=== PATIENT | male | born 1990 | race Caucasian/White ===

== ENCOUNTER → 2017-05-09 | Outpatient (CLI) | payer OTHER ==
[2017-05-12 15:07] LABS: HCV Qualitative Result DETECTED (Not detected)
== END | disposition home or self-care (01) ==
LOC: LABWHC1 17:10
DX: B18.2 Chronic viral hepatitis C (principal)
CPT/HCPCS: 36415; 87522; 87902

== ENCOUNTER → 2017-09-22 | Outpatient (CLI) | payer OTHER ==
[2017-09-22 14:32] LABS: Basophils # (A) 0.1 k/uL (0-0.2); Basophils % (A) 1 %; Eosinophils # (A) 0.4 k/uL (0-0.7); Eosinophils % (A) 6 %; HCT 45.8 % (39.0-53.0); HGB 14.3 gm/dL (13.0-17.5); Lymphocytes # (A) 2.6 k/uL (1.0-4.8); Lymphocytes % (A) 38 %; MCH 29.4 pg (25.0-35.0); MCHC 31.3 g/dL (31.0-37.0); Mean Platelet Volume 7.4; Monocytes # (A) 0.6 k/uL (0-1.0); Monocytes % (A) 8 %; Neutrophils # (A) 3.1 k/uL (1.3-7.7); Neutrophils % (A) 45 %; Platelet Count 228 k/uL (150-450); RBC 4.87 m/uL (4.30-5.90); RDW 13.3 % (11.5-15.5); WBC 6.8 k/uL (3.8-10.6)
[2017-09-22 14:42] LABS: ALT 71 U/L (21-72); AST 39 U/L (17-59); Albumin 4.5 g/dL (3.5-5.0); Alkaline Phosphatase 67 U/L (38-126); Anion Gap 10 mmol/L; Bilirubin, Delta 0.2 mg/dL (0.0-0.2); Bilirubin,Unconjugated 0.4 mg/dL (0.0-1.1); Blood Urea Nitrogen 15 mg/dL (9-20); Calcium 9.7 mg/dL (8.4-10.2); Carbon Dioxide 29 mmol/L (22-30); Chloride 104 mmol/L (98-107); Glucose 92 mg/dL (74-99); Potassium 5.1 mmol/L (3.5-5.1); Sodium 143 mmol/L (137-145); Total Bilirubin 0.6 mg/dL (0.2-1.3); Total Protein 7.6 g/dL (6.3-8.2)
[2017-09-25 15:51] LABS: Hepatits C Virus RNA DETECTED (Not detected); LOG HCV IU/mL 3.69 (<1.08)
== END | disposition home or self-care (01) ==
LOC: LABWHC1 14:01
DX: B18.2 Chronic viral hepatitis C (principal)
CPT/HCPCS: 36415; 80053; 82248; 85025; 87522

== ENCOUNTER 2017-09-26 15:27 | Emergency (ER) | payer OTHER ==
[2017-09-26 15:35] VITALS: BP 131/76; PULSE 71; RESP 20; TEMP 98.3
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
== END 2017-09-26 16:14 | disposition home or self-care (01) ==
LOC: EC 15:27
DX: G89.29 Other chronic pain (principal); M54.5 Low back pain; R10.13 Epigastric pain; F17.200 Nicotine dependence, unspecified, uncomplicated
CPT/HCPCS: 99283

== ENCOUNTER 2017-09-28 15:13 | Inpatient (IN) | payer OTHER ==
[2017-09-28] MEDS ORDERED: SODIUM CHLORIDE 0.9% 500 ML IV STA (15:53)
[2017-09-28] MEDS ORDERED: KETOROLAC 30 MG/ML 1 ML VIAL IVP STA (15:53)
[2017-09-28] MEDS ORDERED: ONDANSETRON 4 MG/2 ML VIAL IVP STA (15:53)
[2017-09-28 16:35] LABS: Basophils % (A) 0 %; Eosinophils # (A) 0.1 k/uL (0-0.7); Eosinophils % (A) 1 %; HCT 46.8 % (39.0-53.0); HGB 15.7 gm/dL (13.0-17.5); Lymphocytes # (A) 0.9 k/uL (1.0-4.8); Lymphocytes % (A) 7 %; MCH 29.7 pg (25.0-35.0); MCHC 33.5 g/dL (31.0-37.0); Mean Platelet Volume 8.3; Monocytes # (A) 1.3 k/uL (0-1.0); Monocytes % (A) 10 %; Neutrophils # (A) 10.4 k/uL (1.3-7.7); Neutrophils % (A) 81 %; Platelet Count 187 k/uL (150-450); RBC 5.28 m/uL (4.30-5.90); RDW 13.3 % (11.5-15.5); WBC 12.9 k/uL (3.8-10.6)
[2017-09-28 16:36] LABS: MCV 88.6 fL (80.0-100.0)
[2017-09-28 16:43] LABS: ALT 467 U/L (21-72); AST 510 U/L (17-59); Albumin 4.6 g/dL (3.5-5.0); Alkaline Phosphatase 148 U/L (38-126); Amylase 55 U/L (30-110); Anion Gap 12 mmol/L; Blood Urea Nitrogen 13 mg/dL (9-20); Calcium 9.8 mg/dL (8.4-10.2); Carbon Dioxide 23 mmol/L (22-30); Chloride 107 mmol/L (98-107); Glucose 102 mg/dL (74-99); Lipase 68 U/L (23-300); Potassium 4.6 mmol/L (3.5-5.1); Sodium 142 mmol/L (137-145); Total Bilirubin 3.2 mg/dL (0.2-1.3); Total Protein 8.1 g/dL (6.3-8.2)
--- NOTE | 2017-09-28 17:12 | US ---
EXAMINATION TYPE: US gallbladder DATE OF EXAM: 09/28/2017 COMPARISON: NONE CLINICAL HISTORY: Pain. EXAM MEASUREMENTS: Liver Length: 18.4 cm Gallbladder Wall: 0.2 cm CBD: 0.6 cm CHD: 0.6 cm Right Kidney: 11.8 x 5.0 x 3.6 cm Pancreas: Tail obscured by overlying bowel gas. Appears slightly echogenic. Liver: Appears slightly enlarged in size. No focal masses identified. Gallbladder: Multiple mobile echogenic foci with shadowing seen. Unable to see neck due to echogeni c foci. Evidence for sonographic Madden's sign: neg CBD: wnl CHD: wnl Right Kidney: wnl IMPRESSION: Numerous large gallstones. No dilated ducts. No focal liver defect.
[2017-09-28 17:20] LABS: Amorphous Sediment,Urine Few /hpf; Appearance,Urine Turbid (Clear); Bacteria,Urine Moderate /hpf; Bilirubin,Urine 2+ (Negative); Blood,Urine Negative (Negative); Color,Urine Orange; Glucose,Urine (UA) Negative (Negative); Ketones,Urine Negative (Negative); Leukocyte Esterase,Urine Negative (Negative); Mucus,Urine Moderate /hpf; Protein,Urine 1+ (Negative); RBC,Urine 12 /hpf (0-5); Specific Gravity,Urine 1.023 (1.001-1.035); WBC,Urine 40 /hpf (0-5)
[2017-09-28] MEDS ORDERED: cefTRIAXone IN SWFI 1,000 MG/10 ML SYRINGE IVP STA (18:06)
[2017-09-28] MEDS ORDERED: AZITHROMYCIN 500 MG TAB PO STA (18:09)
[2017-09-28] MEDS ORDERED: SODIUM CHLORIDE 0.9% 1,000 ML IV ONE (18:19)
--- NOTE | 2017-09-28 18:19 | ED ---
General Adult HPI - General Chief complaint: Abdominal Pain Stated complaint: Side pain Time Seen by Provider: 09/28/17 15:15 Source: patient, RN notes reviewed Mode of arrival: ambulatory Limitations: no limitations - History of Present Illness Initial comments: This is a 26-year-old male who presents emergency Department complaining of right upper quadrant abdominal pain. Patient states he is a former heroin addict and he also has hepatitis C. Patient states the pain has been increasing over the last 3 days she's been to the ER twice before and once was doctor's office. Patient states she's been slightly nauseous has vomited once last evening. Patient denies any diarrhea. Patient denies any pain in the lower abdomen. Patient denies any dysuria hematuria urinary freaky. Patient denies any recent fever chills or cough. Patient denies any chest pain or palpitations patient denies any difficulty breathing shortness of breath. - Related Data Home Medications Medication Instructions Recorded Confirmed No Known Home Medications [No 09/28/17 09/28/17 Known Home Medications] Allergies Allergy/AdvReac Type Severity Reaction Status Date / Time No Known Allergies Allergy Verified 09/28/17 15:58 Review of Systems ROS Statement: Those systems with pertinent positive or pertinent negative responses have been documented in the HPI. ROS Other: All systems not noted in ROS Statement are negative. Past Medical History Past Medical History: No Reported History History of Any Multi-Drug Resistant Organisms: None Reported Past Surgical History: No Surgical Hx Reported Past Psychological History: No Psychological Hx Reported Smoking Status: Current every day smoker Past Alcohol Use History: None Reported Past Drug Use History: None Reported General Exam - General Exam Comments Initial Comments: GENERAL: Patient is well-developed and well-nourished. Patient is nontoxic and well- hydrated and is in no acute distress. ENT: Neck is soft and supple. No significant lymphadenopathy is noted. Oropharynx is clear. Moist mucous membranes. Neck has full range of motion without eliciting any pain. EYES: The sclera were anicteric and conjunctiva were pink and moist. Extraocular movements were intact and pupils were equal round and reactive to light. Eyelids were unremarkable. PULMONARY: Unlabored respirations. Good breath sounds bilaterally. No audible rales rhonchi or wheezing was noted. CARDIOVASCULAR: There is a regular rate and rhythm without any murmurs gallops or rubs. ABDOMEN: Patient has right upper quadrant tenderness. SKIN: Skin is clear with no lesions or rashes and otherwise unremarkable. NEUROLOGIC: Patient is alert and oriented x3. Cranial nerves II through XII are grossly intact. Motor and sensory are also intact. Normal speech, volume and content. Symmetrical smile. MUSCULOSKELETAL: Normal extremities with adequate strength and full range of motion. LYMPHATICS: No significant lymphadenopathy is noted PSYCHIATRIC: Normal psychiatric evaluation. Limitations: no limitations Course Vital Signs 09/28/17 15:32 Temperature 98 F Pulse Rate 98 Respiratory 20 Rate Blood Pressure 171/97 O2 Sat by Pulse 98 Oximetry Medical Decision Making - Medical Decision Making Patient also had a urinary tract infectious I treated him for STDs. I spoke with Dr. Stevens he agreed to admit the patient I consult to Dr. Wisdom. - Lab Data Result diagrams: 09/28/17 16:10 09/28/17 16:10 Lab Results 09/28/17 09/28/17 09/28/17 Range/Units 16:10 16:10 16:50 WBC 12.9 H (3.8-10.6) k/uL RBC 5.28 (4.30-5.90) m/uL Hgb 15.7 (13.0-17.5) gm/dL Hct 46.8 (39.0-53.0) % MCV 88.6 D (80.0-100.0) fL MCH 29.7 (25.0-35.0) pg MCHC 33.5 (31.0-37.0) g/dL RDW 13.3 (11.5-15.5) % Plt Count 187 (150-450) k/uL Neutrophils % 81 % Lymphocytes % 7 % Monocytes % 10 % Eosinophils % 1 % Basophils % 0 % Neutrophils # 10.4 H (1.3-7.7) k/uL Lymphocytes # 0.9 L (1.0-4.8) k/uL Monocytes # 1.3 H (0-1.0) k/uL Eosinophils # 0.1 (0-0.7) k/uL Basophils # 0.0 (0-0.2) k/uL Sodium 142 (137-145) mmol/L Potassium 4.6 (3.5-5.1) mmol/L Chloride 107 (98-107) mmol/L Carbon Dioxide 23 (22-30) mmol/L Anion Gap 12 mmol/L BUN 13 (9-20) mg/dL Creatinine 0.70 (0.66-1.25) mg/dL Est GFR (MDRD) Af Amer >60 (>60 ml/min/1.73 sqM) Est GFR (MDRD) Non-Af >60 (>60 ml/min/1.73 sqM) Glucose 102 H (74-99) mg/dL Calcium 9.8 (8.4-10.2) mg/dL Total Bilirubin 3.2 H (0.2-1.3) mg/dL AST 510 H (17-59) U/L ALT 467 H (21-72) U/L Alkaline Phosphatase 148 H (38-126) U/L Total Protein 8.1 (6.3-8.2) g/dL Albumin 4.6 (3.5-5.0) g/dL Amylase 55 (30-110) U/L Lipase 68 (23-300) U/L Urine Color [place] Urine Appearance Turbid (Clear) Urine pH 7.0 (5.0-8.0) Ur Specific [place] 1.023 (1.001-1.035) Urine Protein 1+ H (Negative) Urine Glucose (UA) Negative (Negative) Urine Ketones Negative (Negative) Urine Blood Negative (Negative) Urine Nitrite Negative (Negative) Urine Bilirubin 2+ H (Negative) Urine Urobilinogen 4.0 (<2.0) mg/dL Ur Leukocyte Esterase Negative (Negative) Urine RBC 12 H (0-5) /hpf Urine WBC 40 H (0-5) /hpf Urine WBC Clumps Many H (None) /hpf Amorphous Sediment Few H (None) /hpf Urine Bacteria Moderate H (None) /hpf Urine Mucus Moderate H (None) /hpf Disposition Clinical Impression: Right upper quadrant abdominal pain, Cholelithiasis, Urinary tract infection, Concern about STD in male without diagnosis Disposition: ADMITTED IP TO THIS HOSP Referrals: Colton Stevens MD [Primary Care Provider] - 1-2 days Time of Disposition: 18:18
[2017-09-28] MEDS ORDERED: ONDANSETRON 4 MG/2 ML VIAL IVP PRN (20:43)
[2017-09-28] MEDS: NICOTINE 14MG/24HR PATCH TRANSDERM SCH (21:46)
[2017-09-28] MEDS: KETOROLAC 30 MG/ML 1 ML VIAL IVP PRN (21:46)
[2017-09-29] MEDS: KETOROLAC 30 MG/ML 1 ML VIAL IVP PRN (07:38)
[2017-09-29] MEDS: NICOTINE 14MG/24HR PATCH TRANSDERM SCH (07:38)
[2017-09-29 08:57] LABS: Basophils % (A) 0 %; Eosinophils # (A) 0.3 k/uL (0-0.7); Eosinophils % (A) 6 %; HGB 13.6 gm/dL (13.0-17.5); Lymphocytes # (A) 1.7 k/uL (1.0-4.8); Lymphocytes % (A) 36 %; MCH 29.4 pg (25.0-35.0); MCHC 32.3 g/dL (31.0-37.0); Mean Platelet Volume 8.2; Monocytes # (A) 0.5 k/uL (0-1.0); Monocytes % (A) 11 %; Neutrophils # (A) 2.1 k/uL (1.3-7.7); Neutrophils % (A) 44 %; Platelet Count 171 k/uL (150-450); RBC 4.62 m/uL (4.30-5.90); RDW 13.5 % (11.5-15.5); WBC 4.9 k/uL (3.8-10.6)
[2017-09-29 09:07] LABS: ALT 440 U/L (21-72); AST 319 U/L (17-59); Albumin 3.5 g/dL (3.5-5.0); Alkaline Phosphatase 154 U/L (38-126); Anion Gap 7 mmol/L; Blood Urea Nitrogen 11 mg/dL (9-20); Carbon Dioxide 25 mmol/L (22-30); Chloride 108 mmol/L (98-107); Glucose 97 mg/dL (74-99); Potassium 4.5 mmol/L (3.5-5.1); Sodium 140 mmol/L (137-145); Total Bilirubin 3.9 mg/dL (0.2-1.3); Total Protein 6.3 g/dL (6.3-8.2)
--- NOTE | 2017-09-29 10:26 | P.CONS ---
History of Present Illness - Reason for Consult Consult date: 09/29/17 Elevated liver enzymes Requesting physician: Gilberto De La Paz - History of Present Illness 26-year-old male with a history of intravenous heroin abuse, chronic hepatitis C , and nicotine cigarette dependency presents with acute epigastric pain elevated liver enzymes new-onset of jaundice. Pain has been present for about 3 days with dark colored urine no changes in bowel movement color. Denies fever chills hematemesis hematochezia melena. He was evaluated in the emergency room a few days ago with lower back pain. Liver function tests were normal and 09/22/2017. Admission total bilirubin 3.2. AST 510. ALT 467. Alkaline phosphatase 148. Lipase 68. This morning total bilirubin is 3.9. AST 319. ALT 440. Alkaline phosphatase 154. Still expressing pain in the midepigastrium. White count 12.9 presently 4.9. Hemoglobin 13.6. Platelet 171. He has been clean from intravenous drug abuse for about 19 months. Outpatient HCV treatment in progress has not started treatment. Ultrasound abdomen CBD 0.6 cm. Multiple gallstones. No dilated ducts. No focal liver defect. Review of Systems Constitutional: Denies fever, chills, sweats, weight gain, or loss. HEENT: Negative for migraines, blurred vision or loss, earaches, drainage, tinnitus, oral mucosal lesions, dysphagia, or odynophagia. Cardiac: Negative for chest pain, arrhythmias, or palpitation. Respiratory: Nicotine cigarette dependency. Negative for shortness of breath, hemoptysis, cough, or sputum production. Gastrointestinal: See HPI for pertinent findings. Genitourinary: Negative for hematuria, urgency, frequency, polyuria, dysuria, or penile discharge. Musculoskeletal: Negative for muscle aches, swelling, arthritis, and arthralgias. Neurologic: Negative for stroke or TIA. Endocrine: Negative for thyroid problems. Skin: Negative for rash or itching. Psychiatric: Negative history for depression and anxiety Past Medical History Past Medical History: No Reported History History of Any Multi-Drug Resistant Organisms: None Reported Past Surgical History: No Surgical Hx Reported Past Psychological History: No Psychological Hx Reported Smoking Status: Current every day smoker Past Alcohol Use History: None Reported Past Drug Use History: None Reported Medications and Allergies Home Medications Medication Instructions Recorded Confirmed Type No Known Home Medications [No 09/28/17 09/28/17 History Known Home Medications] Allergies Allergy/AdvReac Type Severity Reaction Status Date / Time No Known Allergies Allergy Verified 09/28/17 15:58 Physical Exam Vitals: Vital Signs Temp Pulse Pulse Resp BP BP Pulse Ox 09/29/17 07:00 97.0 F L 57 L 18 106/50 97 09/28/17 23:55 97.7 F 67 18 113/45 96 09/28/17 22:25 18 09/28/17 20:15 97.1 F L 57 L 18 130/49 96 09/28/17 18:15 98.7 F 67 18 125/65 09/28/17 15:32 98 F 98 20 171/97 98 Intake and Output 09/28/17 09/29/17 09/29/17 22:59 06:59 14:59 Intake Total 400 0 Balance 400 0 Intake: Oral 400 0 Other: Voiding Method Toilet # Voids 1 Weight 99.79 kg General appearance: The patient is alert, oriented, in no acute distress. Slightly jaundiced in appearance. HET: Head is normocephalic and atraumatic. Pupils are equal and reactive. Sclerae icterus. Oropharynx is clear without lesions. Neck: Supple without lymphadenopathy. Trachea midline. Heart: S1 S2. Regular rate and rhythm. Lungs: No crackles or wheezes are heard. Abdomen: Soft, midepigastric tenderness, nondistended with bowel sounds. No peritoneal signs. No palpable organomegaly or masses. Extremities: Normal skin color and turgor. No cyanosis, rash, ulceration, clubbing, or edema. Radial and pedal pulses are 2/4 bilaterally. Neurological: No focal deficits. Strength and sensation are grossly intact. Results CBC & Chem 7: 09/29/17 07:56 09/29/17 07:56 Labs: Abnormal Lab Results - Last 24 Hours (Table) 09/28/17 09/28/17 09/28/17 Range/Units 16:10 16:10 16:50 WBC 12.9 H (3.8-10.6) k/uL Neutrophils # 10.4 H (1.3-7.7) k/uL Lymphocytes # 0.9 L (1.0-4.8) k/uL Monocytes # 1.3 H (0-1.0) k/uL Chloride (98-107) mmol/L Glucose 102 H (74-99) mg/dL Total Bilirubin 3.2 H (0.2-1.3) mg/dL AST 510 H (17-59) U/L ALT 467 H (21-72) U/L Alkaline Phosphatase 148 H (38-126) U/L Urine Protein 1+ H (Negative) Urine Bilirubin 2+ H (Negative) Urine RBC 12 H (0-5) /hpf Urine WBC 40 H (0-5) /hpf Urine WBC Clumps Many H (None) /hpf Amorphous Sediment Few H (None) /hpf Urine Bacteria Moderate H (None) /hpf Urine Mucus Moderate H (None) /hpf 09/29/17 Range/Units 07:56 WBC (3.8-10.6) k/uL Neutrophils # (1.3-7.7) k/uL Lymphocytes # (1.0-4.8) k/uL Monocytes # (0-1.0) k/uL Chloride 108 H (98-107) mmol/L Glucose (74-99) mg/dL Total Bilirubin 3.9 H (0.2-1.3) mg/dL AST 319 H (17-59) U/L ALT 440 H (21-72) U/L Alkaline Phosphatase 154 H (38-126) U/L Urine Protein (Negative) Urine Bilirubin (Negative) Urine RBC (0-5) /hpf Urine WBC (0-5) /hpf Urine WBC Clumps (None) /hpf Amorphous Sediment (None) /hpf Urine Bacteria (None) /hpf Urine Mucus (None) /hpf Microbiology - Last 24 Hours (Table) 09/28/17 16:50 Urine Culture - Preliminary Urine,Clean Catch US - abdomen: report reviewed (Dr. Stanton) Assessment and Plan (1) Obstructive jaundice Narrative/Plan: 26 year old male admitted with acute epigastric abdominal pain with new onset of elevated liver enzymes cholelithiasis suspect choledocholithiasis. Current Visit: Yes Status: Acute Code(s): K83.8 - OTHER SPECIFIED DISEASES OF BILIARY TRACT SNOMED Code(s): 62337717 (2) Cholelithiasis Current Visit: Yes Status: Acute Code(s): K80.20 - CALCULUS OF GALLBLADDER W /O CHOLECYSTITIS W/O OBSTRUCTION SNOMED Code(s): 641997676 (3) Chronic hepatitis C virus infection Current Visit: Yes Status: Chronic Code(s): B18.2 - CHRONIC VIRAL HEPATITIS C SNOMED Code(s): 234490856 Plan: 1. ERCP. 2. Nothing by mouth except medications. Case was discussed with general surgeon Dr. De La Paz. The packer dried beef has discussed the risks, benefits and alternative therapies for the above-mentioned procedure and for both sedation/analgesia as well as necessary blood product administration, if indicated, as they pertain to this patient. The patient has indicated understanding and acceptance of the risks and procedures discussed. Thank you for this kind referral and the opportunity to participate in the care of your patient. This consultation was discussed with Dr. Stanton. The impression and plan of care have been directed as dictated.
[2017-09-29 12:00] LABS: Hepatitis A Antibody IgM Non-Reactive (Non-Reactive); Hepatitis B Core IgM Non-Reactive (Non-Reactive)
[2017-09-29 12:13] LABS: INR 1.2 (<1.2); Prothrombin Time 11.2 sec (9.0-12.0)
[2017-09-29] MEDS ORDERED: MORPHINE SULFATE 4 MG/ML SYRINGE IVP PRN (12:24)
--- NOTE | 2017-09-29 12:36 | P.GSCN ---
<Noemi Franco - Last Filed: 09/29/17 12:24> History of Present Illness Consult date: 09/29/17 Reason for Consult: Abdominal pain History of present illness: 6-year-old male presented on the day of admission to the emergency room with a chief complaint of developing right upper quadrant abdominal pain with a nausea sensation. Patient stated the symptoms started 3 days prior. With new onset jaundice. 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 Recently diagnosed with hepatitis C has not initiated treatment yet . Patient stated that the pain in his right upper quadrant continued over the last several days had been to the emergency room twice to be evaluated and once in his doctor's office. Patient states there's been no change in bowel habits. There's been no fever chills. In the emergency room and ultrasound of the gallbladder was obtained and showed numerous large gallstones. No dilated ducts. No focal liver defect. Additionally patient's white count was elevated and AST and ALT were elevated as well total bili on admission was elevated 3.2. Patient continue to report having right upper quadrant pain. Did note the patient has been seen by gastroenterology service for acute epigastric pain elevated liver enzymes patient is scheduled this afternoon by GI service for an ERCP . No significant past surgical history Past medical history none Review of Systems Essentially unremarkable except as mentioned present illness Past Medical History Past Medical History: No Reported History History of Any Multi-Drug Resistant Organisms: None Reported Past Surgical History: No Surgical Hx Reported Past Psychological History: No Psychological Hx Reported Smoking Status: Current every day smoker Past Alcohol Use History: None Reported Past Drug Use History: None Reported Medications and Allergies Home Medications Medication Instructions Recorded Confirmed Type No Known Home Medications [No 09/28/17 09/28/17 History Known Home Medications] Allergies Allergy/AdvReac Type Severity Reaction Status Date / Time No Known Allergies Allergy Verified 09/28/17 15:58 Surgical - Exam Vital Signs Temp Pulse Resp BP Pulse Ox 98 F 98 20 171/97 98 09/28/17 15:32 09/28/17 15:32 09/28/17 15:32 09/28/17 15:32 09/28/17 15:32 GENERAL APPEARANCE: 26 -year-old male jaundice alert, oriented 3, in no acute distress. Sitting up on the edge of the bed VITAL SIGNS: Reviewed HEENT: Head is normocephalic and atraumatic. Pupils are equal and reactive. The nares are patent. Oropharynx is clear without lesions. NECK: Supple without lymphadenopathy. Traches midline. HEART: S1, S2. Regular rate and rhythm. No murmur noted LUNGS: No crackles or wheezes are heard. Adequate air movement bilaterally ABDOMEN: Soft, tenderness right upper quadrant, nondistended with good bowel sounds. No peritoneal signs. No palpable organomegaly or masses. EXTREMITIES: No cyanosis, rash, ulceration, clubbing or edema. Radial pedal pulses are 2/4 bilaterally. NEUROLOGICAL: No focal deficits. Strength and sensation are grossly intact. Results - Labs 09/29/17 07:56 09/29/17 07:56 Abnormal Lab Results - Last 24 Hours (Table) 09/28/17 09/28/17 09/28/17 Range/Units 16:10 16:10 16:50 WBC 12.9 H (3.8-10.6) k/uL Neutrophils # 10.4 H (1.3-7.7) k/uL Lymphocytes # 0.9 L (1.0-4.8) k/uL Monocytes # 1.3 H (0-1.0) k/uL INR (<1.2) Chloride (98-107) mmol/L Glucose 102 H (74-99) mg/dL Total Bilirubin 3.2 H (0.2-1.3) mg/dL AST 510 H (17-59) U/L ALT 467 H (21-72) U/L Alkaline Phosphatase 148 H (38-126) U/L Urine Protein 1+ H (Negative) Urine Bilirubin 2+ H (Negative) Urine RBC 12 H (0-5) /hpf Urine WBC 40 H (0-5) /hpf Urine WBC Clumps Many H (None) /hpf Amorphous Sediment Few H (None) /hpf Urine Bacteria Moderate H (None) /hpf Urine Mucus Moderate H (None) /hpf 09/29/17 09/29/17 Range/Units 07:56 11:40 WBC (3.8-10.6) k/uL Neutrophils # (1.3-7.7) k/uL Lymphocytes # (1.0-4.8) k/uL Monocytes # (0-1.0) k/uL INR 1.2 H (<1.2) Chloride 108 H (98-107) mmol/L Glucose (74-99) mg/dL Total Bilirubin 3.9 H (0.2-1.3) mg/dL AST 319 H (17-59) U/L ALT 440 H (21-72) U/L Alkaline Phosphatase 154 H (38-126) U/L Urine Protein (Negative) Urine Bilirubin (Negative) Urine RBC (0-5) /hpf Urine WBC (0-5) /hpf Urine WBC Clumps (None) /hpf Amorphous Sediment (None) /hpf Urine Bacteria (None) /hpf Urine Mucus (None) /hpf Microbiology - Last 24 Hours (Table) 09/28/17 16:50 Urine Culture - Preliminary Urine,Clean Catch Diabetes panel 09/28/17 09/29/17 Range/Units 16:10 07:56 Sodium 142 140 (137-145) mmol/L Potassium 4.6 4.5 (3.5-5.1) mmol/L Chloride 107 108 H (98-107) mmol/L Carbon Dioxide 23 25 (22-30) mmol/L BUN 13 11 (9-20) mg/dL Creatinine 0.70 0.80 (0.66-1.25) mg/dL Glucose 102 H 97 (74-99) mg/dL Calcium 9.8 9.0 (8.4-10.2) mg/dL AST 510 H 319 H (17-59) U/L ALT 467 H 440 H (21-72) U/L Alkaline Phosphatase 148 H 154 H (38-126) U/L Total Protein 8.1 6.3 (6.3-8.2) g/dL Albumin 4.6 3.5 (3.5-5.0) g/dL Calcium panel 09/28/17 09/29/17 Range/Units 16:10 07:56 Calcium 9.8 9.0 (8.4-10.2) mg/dL Albumin 4.6 3.5 (3.5-5.0) g/dL Pituitary panel 09/28/17 09/29/17 Range/Units 16:10 07:56 Sodium 142 140 (137-145) mmol/L Potassium 4.6 4.5 (3.5-5.1) mmol/L Chloride 107 108 H (98-107) mmol/L Carbon Dioxide 23 25 (22-30) mmol/L BUN 13 11 (9-20) mg/dL Creatinine 0.70 0.80 (0.66-1.25) mg/dL Glucose 102 H 97 (74-99) mg/dL Calcium 9.8 9.0 (8.4-10.2) mg/dL Adrenal panel 09/28/17 09/29/17 Range/Units 16:10 07:56 Sodium 142 140 (137-145) mmol/L Potassium 4.6 4.5 (3.5-5.1) mmol/L Chloride 107 108 H (98-107) mmol/L Carbon Dioxide 23 25 (22-30) mmol/L BUN 13 11 (9-20) mg/dL Creatinine 0.70 0.80 (0.66-1.25) mg/dL Glucose 102 H 97 (74-99) mg/dL Calcium 9.8 9.0 (8.4-10.2) mg/dL Total Bilirubin 3.2 H 3.9 H (0.2-1.3) mg/dL AST 510 H 319 H (17-59) U/L ALT 467 H 440 H (21-72) U/L Alkaline Phosphatase 148 H 154 H (38-126) U/L Total Protein 8.1 6.3 (6.3-8.2) g/dL Albumin 4.6 3.5 (3.5-5.0) g/dL Assessment and Plan Assessment: Impression Present on admission acute epigastric pain radiating to the right upper quadrant suspect due to choledocholithiasis Present on admission obstructive jaundice Chronic hepatitis C virus infection History of IV heroin drug abuse last used 19 months ago per patient report Present on admission elevated liver enzymes with epigastric pain and obstructive jaundice suspect cholelithiasis Plan Await findings from the ERCP Nothing by mouth for planned procedure Further surgical recommendations after ERCP Surgical consultation note dictated for Dr. De La Paz The above impression and plan of care have been discussed and directed by signing physician. Noemi Franco nurse practitioner acting as scribe for signing physician. <Gilberto De La Paz - Last Filed: 09/29/17 13:47> Surgical - Exam Vital Signs Temp Pulse Resp BP Pulse Ox 98 F 98 20 171/97 98 09/28/17 15:32 09/28/17 15:32 03/01/18 15:32 09/28/17 15:32 09/28/17 15:32 Results - Labs 09/29/17 07:56 09/29/17 07:56 Abnormal Lab Results - Last 24 Hours (Table) 09/28/17 09/28/17 09/28/17 Range/Units 16:10 16:10 16:50 WBC 12.9 H (3.8-10.6) k/uL Neutrophils # 10.4 H (1.3-7.7) k/uL Lymphocytes # 0.9 L (1.0-4.8) k/uL Monocytes # 1.3 H (0-1.0) k/uL INR (<1.2) Chloride (98-107) mmol/L Glucose 102 H (74-99) mg/dL Total Bilirubin 3.2 H (0.2-1.3) mg/dL AST 510 H (17-59) U/L ALT 467 H (21-72) U/L Alkaline Phosphatase 148 H (38-126) U/L Urine Protein 1+ H (Negative) Urine Bilirubin 2+ H (Negative) Urine RBC 12 H (0-5) /hpf Urine WBC 40 H (0-5) /hpf Urine WBC Clumps Many H (None) /hpf Amorphous Sediment Few H (None) /hpf Urine Bacteria Moderate H (None) /hpf Urine Mucus Moderate H (None) /hpf 09/29/17 09/29/17 Range/Units 07:56 11:40 WBC (3.8-10.6) k/uL Neutrophils # (1.3-7.7) k/uL Lymphocytes # (1.0-4.8) k/uL Monocytes # (0-1.0) k/uL INR 1.2 H (<1.2) Chloride 108 H (98-107) mmol/L Glucose (74-99) mg/dL Total Bilirubin 3.9 H (0.2-1.3) mg/dL AST 319 H (17-59) U/L ALT 440 H (21-72) U/L Alkaline Phosphatase 154 H (38-126) U/L Urine Protein (Negative) Urine Bilirubin (Negative) Urine RBC (0-5) /hpf Urine WBC (0-5) /hpf Urine WBC Clumps (None) /hpf Amorphous Sediment (None) /hpf Urine Bacteria (None) /hpf Urine Mucus (None) /hpf Microbiology - Last 24 Hours (Table) 09/28/17 16:50 Urine Culture - Preliminary Urine,Clean Catch Diabetes panel 09/28/17 09/29/17 Range/Units 16:10 07:56 Sodium 142 140 (137-145) mmol/L Potassium 4.6 4.5 (3.5-5.1) mmol/L Chloride 107 108 H (98-107) mmol/L Carbon Dioxide 23 25 (22-30) mmol/L BUN 13 11 (9-20) mg/dL Creatinine 0.70 0.80 (0.66-1.25) mg/dL Glucose 102 H 97 (74-99) mg/dL Calcium 9.8 9.0 (8.4-10.2) mg/dL AST 510 H 319 H (17-59) U/L ALT 467 H 440 H (21-72) U/L Alkaline Phosphatase 148 H 154 H (38-126) U/L Total Protein 8.1 6.3 (6.3-8.2) g/dL Albumin 4.6 3.5 (3.5-5.0) g/dL Calcium panel 09/28/17 09/29/17 Range/Units 16:10 07:56 Calcium 9.8 9.0 (8.4-10.2) mg/dL Albumin 4.6 3.5 (3.5-5.0) g/dL Pituitary panel 09/28/17 09/29/17 Range/Units 16:10 07:56 Sodium 142 140 (137-145) mmol/L Potassium 4.6 4.5 (3.5-5.1) mmol/L Chloride 107 108 H (98-107) mmol/L Carbon Dioxide 23 25 (22-30) mmol/L BUN 13 11 (9-20) mg/dL Creatinine 0.70 0.80 (0.66-1.25) mg/dL Glucose 102 H 97 (74-99) mg/dL Calcium 9.8 9.0 (8.4-10.2) mg/dL Adrenal panel 09/28/17 09/29/17 Range/Units 16:10 07:56 Sodium 142 140 (137-145) mmol/L Potassium 4.6 4.5 (3.5-5.1) mmol/L Chloride 107 108 H (98-107) mmol/L Carbon Dioxide 23 25 (22-30) mmol/L BUN 13 11 (9-20) mg/dL Creatinine 0.70 0.80 (0.66-1.25) mg/dL Glucose 102 H 97 (74-99) mg/dL Calcium 9.8 9.0 (8.4-10.2) mg/dL Total Bilirubin 3.2 H 3.9 H (0.2-1.3) mg/dL AST 510 H 319 H (17-59) U/L ALT 467 H 440 H (21-72) U/L Alkaline Phosphatase 148 H 154 H (38-126) U/L Total Protein 8.1 6.3 (6.3-8.2) g/dL Albumin 4.6 3.5 (3.5-5.0) g/dL Assessment and Plan Assessment: As above. Patient still with some mild right upper quadrant pain. Suspect choledocholithiasis. Await ERCP findings today. Patient will likely require cholecystectomy either later during this hospitalization or shortly after discharge. This was discussed with the patient. Will follow.
--- NOTE | 2017-09-29 12:50 | P.HPIM ---
History of Present Illness H&P Date: 09/29/17 26-year-old male who presented to the emergency room with a right upper quadrant pain that started 2 days ago and is been getting progressively worse. Patient said that his pain is sharp and 10 out of 10 in severity. It is getting worse after he eats. He is having normal bowel movement. He started being nauseated and vomited once yesterday. In the emergency room patient was found to have acute transaminitis with ultrasound of the abdomen showing evidence of chordee lithiasis. He was admitted to the hospital and is scheduled for ERCP today. Review of Systems Review of system: 14 points review of systems were obtained and were negative except to what were mentioned in the HPI. Past Medical History Past Medical History: No Reported History History of Any Multi-Drug Resistant Organisms: None Reported Past Surgical History: No Surgical Hx Reported Past Psychological History: No Psychological Hx Reported Smoking Status: Current every day smoker Past Alcohol Use History: None Reported Past Drug Use History: None Reported Medications and Allergies Home Medications Medication Instructions Recorded Confirmed Type No Known Home Medications [No 09/28/17 09/28/17 History Known Home Medications] Allergies Allergy/AdvReac Type Severity Reaction Status Date / Time No Known Allergies Allergy Verified 09/28/17 15:58 Physical Exam Vitals: Vital Signs Temp Pulse Pulse Resp BP BP Pulse Ox 09/29/17 07:00 97.0 F L 57 L 18 106/50 97 09/28/17 23:55 97.7 F 67 18 113/45 96 09/28/17 22:25 18 09/28/17 20:15 97.1 F L 57 L 18 130/49 96 09/28/17 18:15 98.7 F 67 18 125/65 09/28/17 15:32 98 F 98 20 171/97 98 Intake and Output 09/28/17 09/29/17 09/29/17 22:59 06:59 14:59 Intake Total 400 0 Balance 400 0 Intake: Oral 400 0 Other: Voiding Method Toilet # Voids 1 1 Weight 99.79 kg General: The patient is awake and alert, in no distress Eye: there is normal conjunctiva bilaterally. Neck: The neck is supple, there is no JVD. Cardiovascular: Normal S1-S2, no S3-S4, no murmurs. Respiratory: Lungs clear to auscultation bilaterally Gastrointestinal: Abdomen is soft, there is moderate tenderness to palpation in the right upper quadrant Musculoskeletal: There is no pedal edema. Neurological:. Speech is normal. Skin: Skin is warm and dry Results CBC & Chem 7: 09/29/17 07:56 09/29/17 07:56 Labs: Abnormal Lab Results - Last 24 Hours (Table) 09/28/17 09/28/17 09/28/17 Range/Units 16:10 16:10 16:50 WBC 12.9 H (3.8-10.6) k/uL Neutrophils # 10.4 H (1.3-7.7) k/uL Lymphocytes # 0.9 L (1.0-4.8) k/uL Monocytes # 1.3 H (0-1.0) k/uL INR (<1.2) Chloride (98-107) mmol/L Glucose 102 H (74-99) mg/dL Total Bilirubin 3.2 H (0.2-1.3) mg/dL AST 510 H (17-59) U/L ALT 467 H (21-72) U/L Alkaline Phosphatase 148 H (38-126) U/L Urine Protein 1+ H (Negative) Urine Bilirubin 2+ H (Negative) Urine RBC 12 H (0-5) /hpf Urine WBC 40 H (0-5) /hpf Urine WBC Clumps Many H (None) /hpf Amorphous Sediment Few H (None) /hpf Urine Bacteria Moderate H (None) /hpf Urine Mucus Moderate H (None) /hpf 09/29/17 09/29/17 Range/Units 07:56 11:40 WBC (3.8-10.6) k/uL Neutrophils # (1.3-7.7) k/uL Lymphocytes # (1.0-4.8) k/uL Monocytes # (0-1.0) k/uL INR 1.2 H (<1.2) Chloride 108 H (98-107) mmol/L Glucose (74-99) mg/dL Total Bilirubin 3.9 H (0.2-1.3) mg/dL AST 319 H (17-59) U/L ALT 440 H (21-72) U/L Alkaline Phosphatase 154 H (38-126) U/L Urine Protein (Negative) Urine Bilirubin (Negative) Urine RBC (0-5) /hpf Urine WBC (0-5) /hpf Urine WBC Clumps (None) /hpf Amorphous Sediment (None) /hpf Urine Bacteria (None) /hpf Urine Mucus (None) /hpf Microbiology - Last 24 Hours (Table) 09/28/17 16:50 Urine Culture - Preliminary Urine,Clean Catch Thrombosis Risk Factor Assmnt - Choose All That Apply Any of the Below Risk Factors Present?: Yes Each Factor Represents 1 point: Obesity (BMI >25) Thrombosis Risk Factor Assessment Total Risk Factor Score: 1 Thrombosis Risk Factor Assessment Level: Low Risk Assessment and Plan Assessment: 1. Cholelithiasis with no evidence of acute cholecystitis 2. Severe right upper quadrant pain 3. Acute transaminitis probably related to #1 4. Chronic hepatitis C 5. History of IV drug use now in remission for 19 months Patient is scheduled for ERCP today. Continue IV fluid hydration. Avoid any IV narcotics given past history of IV drug use. Toradol for pain control. Repeat lab work in the morning.
[2017-09-29] MEDS ORDERED: LEVOFLOXACIN 500MG-D5W PMX 500 MG in DEXTROSE/WATER 1 100ML.BAG IVPB ONE (13:00)
[2017-09-29] MEDS ORDERED: INDOMETHACIN 50MG SUPPOSITORY RECTAL ONE (13:00)
[2017-09-29] MEDS ORDERED: NICOTINE 21MG/24HR PATCH TRANSDERM STA (13:22)
[2017-09-29 14:49] LABS: C. trachomatis,PCR Negative (Neg,Equiv); Chlamydia trachomatis Source Urine; N. gonorrhoeae,PCR Negative (Neg,Equiv); Neisseria Source Urine
[2017-09-29] MEDS ORDERED: MIDAZOLAM 2 MG/2 ML VIAL ONE (15:36)
[2017-09-29] MEDS ORDERED: PROPOFOL 10 MG/ML 20 ML VIAL IV ONE (15:36)
[2017-09-29] MEDS ORDERED: GLYCOPYRROLATE 0.2 MG/ML 2 ML VIAL ONE (15:36)
[2017-09-29] MEDS ORDERED: LIDOCAINE 1% INJ 10MG/ML (20 ML MDV) ONE (15:36)
[2017-09-29] MEDS ORDERED: KETAMINE 10 MG/ML 20 ML VIAL ONE (15:36)
[2017-09-29] MEDS ORDERED: IV FLUID CONTINUATION 1,000 ML IV ONE (15:39)
[2017-09-29] MEDS ORDERED: IOHEXOL 300 MG/ML 50 ML BOTTLE MISCELLANE ONE (16:00)
--- NOTE | 2017-09-29 16:27 | P.PCN ---
Date of Procedure: 09/29/17 Procedure(s) Performed: Procedure: Endoscopic retrograde cholangiopancreatography ERCP with sphincterotomy and extraction of common bile duct stone using the 8.5 mm balloon catheter. Preoperative diagnosis: Choledocholithiasis with abdominal pain and abnormal liver enzymes. Postoperative diagnosis: 1. Filling defects in the common bile duct consistent with common bile duct stone, S/P sphincterotomy with extraction of stones and debris using 8.5 mm balloon catheter. Operation sedation: Was provided by anesthesia. Brief clinical history: The patient is a 26-year-old male with history of intravenous heroin abuse, chronic hepatitis C, and nicotine cigarette dependency presents with acute epigastric pain elevated liver enzymes new-onset of jaundice. Pain has been present for about 3 days with dark colored urine no changes in bowel movement color. Denies fever or chills. He was evaluated in the emergency room a few days ago with lower back pain. Liver function tests were normal and 09/22/2017. Admission total bilirubin 3.2. AST 510. ALT 467. Alkaline phosphatase 148. Lipase 68. This morning total bilirubin is 3.9. AST 319. ALT 440. Alkaline phosphatase 154. Still expressing pain in the midepigastrium. White count 12.9 presently 4.9. Hemoglobin 13.6. Platelet 171. He has been clean from intravenous drug abuse for about 19 months. Outpatient HCV treatment in progress has not started treatment. Ultrasound abdomen CBD 0.6 cm. Multiple gallstones. No dilated ducts. No focal liver defect. Other details are summarized in the history and physical and dictated consultations and progress notes. Procedure: With the patient on his prone position and after informed consent and adequate sedation, I passed the Olympus video duodenoscope down the esophagus into the stomach then passed it through the pylorus into the duodenum and brought the papilla into view. The papilla appeared normal. Initial cannulation and injection with dye resulted in opacification of the pancreatic duct which appeared normal. Subsequently, I was able to selectively cannulate the common bile duct and inject it with dye. There was some dilation of the common bile duct with at least 1 filling defect consistent with common bile duct stone. I proceeded to exchange the catheter for a sphincterotome over the guidewire and perform adequate sphincterotomy. Following that, an 8.5 mm balloon catheter was used and a common bile duct stone with multiple debris was successfully extracted and the balloon was withdrawn fully inflated. The patient tolerated the procedure well. Plan: I summarized the findings to the patient and the history of family. Will allow clear liquid diet and monitor for any complications of the procedure. The patient will be candidate for cholecystectomy, the timing as per Dr. De La Paz.
[2017-09-29] MEDS ORDERED: ACETAMINOPHEN TAB 325 MG TAB PO PRN (17:35)
[2017-09-29 23:58] VITALS: RESP 14
[2017-09-30 06:27] VITALS: BP 129/64; PULSE 59; TEMP 96.2
[2017-09-30 07:24] LABS: Basophils % (A) 1 %; Eosinophils # (A) 0.4 k/uL (0-0.7); Eosinophils % (A) 7 %; HCT 42.2 % (39.0-53.0); HGB 13.7 gm/dL (13.0-17.5); Lymphocytes % (A) 35 %; MCHC 32.4 g/dL (31.0-37.0); MCV 92.5 fL (80.0-100.0); Mean Platelet Volume 7.9; Monocytes # (A) 0.5 k/uL (0-1.0); Monocytes % (A) 9 %; Neutrophils # (A) 2.7 k/uL (1.3-7.7); Neutrophils % (A) 47 %; Platelet Count 173 k/uL (150-450); RBC 4.56 m/uL (4.30-5.90); RDW 13.3 % (11.5-15.5); WBC 5.7 k/uL (3.8-10.6)
[2017-09-30 07:51] LABS: ALT 320 U/L (21-72); AST 138 U/L (17-59); Albumin 3.3 g/dL (3.5-5.0); Alkaline Phosphatase 153 U/L (38-126); Anion Gap 8 mmol/L; Blood Urea Nitrogen 13 mg/dL (9-20); Calcium 8.9 mg/dL (8.4-10.2); Carbon Dioxide 23 mmol/L (22-30); Chloride 109 mmol/L (98-107); Glucose 103 mg/dL (74-99); Potassium 4.1 mmol/L (3.5-5.1); Sodium 140 mmol/L (137-145); Total Bilirubin 0.9 mg/dL (0.2-1.3)
--- NOTE | 2017-09-30 08:16 | FL ---
Fluoroscopy INDICATION: Pain FINDINGS: Fluoroscopy time: 1 minute 27 seconds. Images obtained: 2. IMPRESSIONS: 1. Documentation of fluoroscopy.
[2017-09-30] MEDS: NICOTINE 14MG/24HR PATCH TRANSDERM SCH (09:51)
--- NOTE | 2017-09-30 09:52 | P.PN ---
Subjective Progress Note Date: 09/30/17 Patient is a 26-year-old male who presented to the hospital with a complaint of right upper quadrant abdominal discomfort. He was noted to have jaundice and underwent an ultrasound of the gallbladder which revealed numerous large gallstones. The patient subsequently underwent an ERCP pre-underwent a sphincterotomy and extraction of a common bile duct stone. The patient today is feeling well the patient's white count is 5.7 hemoglobin 13.7. The patient' s total bilirubin is down 2.9 from 3.2. His amylase and lipase as of were within normal limits. The patient's AST is 138 and a LT is 320. The patient has been evaluated by Dr. Wisdom and he wishes to be discharged home and undergo an outpatient laparoscopic cholecystectomy. Objective - Vital Signs Vital signs: Vital Signs Temp 96.2 F L 09/30/17 05:56 Pulse 59 L 09/30/17 05:56 Resp 14 09/30/17 05:56 BP 129/64 09/30/17 05:56 Pulse Ox 97 09/30/17 05:56 Intake & Output 09/29/17 09/30/17 09/30/17 18:59 06:59 18:59 Intake Total 600 Balance 600 Intake: IV 600 Other: Voiding Method Toilet Toilet # Voids 1 2 - Constitutional General appearance: Present: average body habitus - Neck Neck: Present: normal ROM - Respiratory Respiratory: bilateral: CTA - Cardiovascular Rhythm: regular Heart sounds: normal: S1, S2 - Gastrointestinal General gastrointestinal: Present: normal bowel sounds, soft - Labs CBC & Chem 7: 09/30/17 07:04 09/30/17 07:04 Labs: Abnormal Lab Results - Last 24 Hours (Table) 09/28/17 09/29/17 09/30/17 Range/Units 16:10 11:40 07:04 INR 1.2 H (<1.2) Chloride 109 H (98-107) mmol/L Glucose 103 H (74-99) mg/dL AST 138 H (17-59) U/L ALT 320 H (21-72) U/L Alkaline Phosphatase 153 H (38-126) U/L Total Protein 6.0 L (6.3-8.2) g/dL Albumin 3.3 L (3.5-5.0) g/dL Hep C IgG Ab Reactive H (Non-Reactive) Microbiology - Last 24 Hours (Table) 09/28/17 16:50 Urine Culture - Final Urine,Clean Catch Assessment and Plan Assessment: Impression/plan: 1. Resolved midepigastric pain status post ERCP 2. Chronic hepatitis C 3. History of IV heroin drug abuse Plan: 1. Probable discharge home to be followed by Dr. Jolley for elective cholecystectomy
--- NOTE | 2017-09-30 14:04 | P.DS ---
Providers Date of admission: 09/28/17 18:19 Expected date of discharge: 09/30/17 Attending physician: Colton Stevens Consults: 09/28/17 18:19 Consult Physician Urgent Consulting Provider: Gilberto De La Paz Consult Reason/Comments: Right upper quadrant abdominal pain, cholelithiasis Do you want consulting provider notified?: Yes 09/29/17 07:05 Consult Physician Routine Consulting Provider: Erika Rocha Consult Reason/Comments: Elevated liver enzymes Do you want consulting provider notified?: Yes Primary care physician: [facility] Course: 1. Cholelithiasis with no evidence of acute cholecystitis: Seen and evaluated by GI. Status post ERCP with sphincterectomy an extraction of stones. Plan for elective cholecystectomy as an outpatient. 2. Severe right upper quadrant pain 3. Acute transaminitis probably related to #1: Liver function improved after ERCP 4. Chronic hepatitis C 5. History of IV drug use now in remission for 19 months Patient will be discharged home in a stable condition. He will follow-up with me and Gen. surgery in the office next week Patient Condition at Discharge: Good Plan - Discharge Summary Discharge Rx Participant: No New Discharge Prescriptions: No Action No Known Home Medications [No Known Home Medications] Discharge Medication List No Known Home Medications [No Known Home Medications] 09/28/17 [History] Follow up Appointment(s)/Referral(s): Gilberto De La Paz MD [Medical Doctor] - 1 Week (office closed. please call to schedule appointment. ) Colton Stevens MD [Primary Care Provider] - 1-2 days (office closed. please call to schedule an appointment) Patient Instructions/Handouts: ERCP (Endoscopic Retrograde Cholangiopancreatography) (DC), Acute Abdominal Pain (DC) Discharge Disposition: HOME SELF-CARE
== END 2017-09-30 13:37 | disposition home or self-care (01) | DRG 446 ==
LOC: EC 15:13 → 4MS4W 18:19
PROVIDERS: ADMIT Internal Medicine; ATTEND Internal Medicine
PROC: 0FC98ZZ Extirpation of Matter from Common Bile Duct, Via Natural or Artificial Opening Endoscopic (ICD-10-PCS; principal; 2017-09-29 08:55)
DX: K80.21 Calculus of gallbladder without cholecystitis with obstruction (principal); B18.2 Chronic viral hepatitis C; F11.21 Opioid dependence, in remission; N48.89 Other specified disorders of penis; F17.210 Nicotine dependence, cigarettes, uncomplicated
CPT/HCPCS: 36415; 43262; 43264; 74328; 76705; 80053; 80074; 81001; 82150; 83690; 85025; 85610; 87086; 87491; 87591; 96361; 96374; 96375; 99285

== ENCOUNTER 2017-10-05 12:23 | Day surgery (SDC) | payer OTHER ==
[2017-10-04 11:16] VITALS: BMI 32.8
[~2017-10-05 12:23] MED LIST: DEXAMETHASONE SOD PHOSPHATE 10 MG/ML 1 ML VIAL IV ONE; HYDROmorphone 0.5 MG/0.5 ML SYRINGE IVP PRN; LACTATED RINGERS 1,000 ML IV SCH; LIDOCAINE 1% 20 ML VIAL (10MG/ML) FOR IV START INTRADERMA PRN; MIDAZOLAM 2 MG/2 ML VIAL IV PRN; ONDANSETRON 4 MG/2 ML VIAL IVP ONE; SCOPOLAMINE 1.5MG/72HR PATCH TRANSDERM ONE; ceFAZolin IN SWFI 2 GM/20 ML SYRINGE IVP ONE
[2017-10-05 12:33] VITALS: TEMP 97.9
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
[2017-10-05 13:30] LABS: Albumin 4.4 g/dL (3.5-5.0); Anion Gap 10 mmol/L; Calcium 9.6 mg/dL (8.4-10.2); Carbon Dioxide 25 mmol/L (22-30); Chloride 105 mmol/L (98-107); Glucose 95 mg/dL (74-99); Sodium 140 mmol/L (137-145); Total Bilirubin 0.9 mg/dL (0.2-1.3); Total Protein 7.7 g/dL (6.3-8.2)
[2017-10-05 13:32] LABS: ALT 180 U/L (21-72); AST 77 U/L (17-59); Alkaline Phosphatase 106 U/L (38-126); Blood Urea Nitrogen 13 mg/dL (9-20)
[2017-10-05] MEDS ORDERED: NEOSTIGMINE 1 MG/ML 10 ML VIAL ONE (14:00)
[2017-10-05] MEDS ORDERED: KETOROLAC 30 MG/ML 1 ML VIAL ONE (14:00)
[2017-10-05] MEDS ORDERED: SUCCINYLCHOLINE CHLORIDE 100 MG/5 ML SYR IV ONE (14:00)
[2017-10-05] MEDS ORDERED: ACETAMINOPHEN IV (For NPO) 1,000 MG/100 ML VIAL ONE (14:00)
[2017-10-05] MEDS ORDERED: METOPROLOL TARTRATE 5 MG/5 ML VIAL IVP ONE (14:00)
[2017-10-05] MEDS ORDERED: MIDAZOLAM 2 MG/2 ML VIAL ONE (14:00)
[2017-10-05] MEDS ORDERED: GLYCOPYRROLATE 0.2 MG/ML 2 ML VIAL ONE (14:00)
[2017-10-05] MEDS ORDERED: ROCURONIUM BROMIDE 10 MG/ML 10 ML VIAL IV ONE (14:00)
[2017-10-05] MEDS ORDERED: PROPOFOL 10 MG/ML 20 ML VIAL IV ONE (14:00)
[2017-10-05] MEDS ORDERED: BUPIVACAINE (PF) 0.25% 30 ML VIAL SQ ONE ×2 (14:12)
[2017-10-05] MEDS ORDERED: LACTATED RINGERS 1,000 ML IV ONE ×2 (14:53→15:25)
[2017-10-05] MEDS ORDERED: traMADol 50 MG TAB PO PRN (15:15)
[2017-10-05] MEDS ORDERED: NALOXONE 0.4 MG/ML 1 ML VIAL IV PRN (15:15)
[2017-10-05 17:02] VITALS: RESP 18
[2017-10-05 17:07] VITALS: BP 102/59; PULSE 84
--- NOTE | 2017-10-10 06:08 | P.OP ---
Date of Procedure: 10/10/17 Procedure(s) Performed: PREOPERATIVE DIAGNOSIS: Choledocholithiasis POSTOPERATIVE DIAGNOSIS: Same PROCEDURE: Laparoscopic cholecystectomy SURGEON: Ana Cristina EBL: Minimal see anesthesia record ANESTHESIA: Gen. COMPLICATIONS: None OPERATIVE PROCEDURE: The patient was brought and placed on the operating room table in the supine position. The patient was placed under general anesthesia at that time. The abdomen was prepped and draped in the usual sterile fashion. A small vertical infraumbilical incision was made. The fascia was grasped with the Tsering forceps. The fascia was retracted anteriorly. The Veress needle was advanced into the peritoneal cavity. The saline drop test was normal. Insufflation took place up to 15 mmHg. A 5 mm optical trocar was advanced and the peritoneal cavity. 2 additional 5 mm trochars were placed in the right upper quadrant under direct visualization. A 12 mm trocar was advanced into the epigastric incision site. The gallbladder was retracted superiorly and laterally. The peritoneum overlying the infundibulum was bluntly dissected. The patient's cystic duct was visualized. The junction between the cystic duct common and hepatic duct was identified. The cystic duct was prominent in size. An 2-0 Ethibond stitch was used to ligate the cystic duct and additional 12 mm clipped was placed on the patient's side as well as the specimen side. The cystic artery was identified and clipped as well. A small vessel was seen along the gallbladder fossa and clipped as well. The gallbladder was then removed from the liver bed using electrocautery. The gallbladder was then removed from the epigastric trocar site with an Endo Catch bag. The gallbladder fossa was irrigated with saline. There was no evidence of any bleeding or biliary drainage seen. The trochars were then removed. The fascia at the 10 millimeter site was closed using a figure-of- eight 0 Vicryl stitch. The skin at all 4 sites was closed using a 4-0 Monocryl stitch. At the end of this procedure the sponge and needle counts were correct. DISPOSITION: Stable to the recovery room
== END 2017-10-05 17:33 | disposition home or self-care (01) ==
LOC: OR 12:23
PROVIDERS: ATTEND Surgery
DX: K80.10 Calculus of gallbladder with chronic cholecystitis without obstruction (principal); F17.210 Nicotine dependence, cigarettes, uncomplicated; Z86.19 Personal history of other infectious and parasitic diseases
CPT/HCPCS: 88304; 80053; 47562; J2250; J1100; J2710; J2405; J1885; J0131; J0330; J2704; J0690

== ENCOUNTER → 2017-12-16 | Outpatient (CLI) | payer OTHER ==
[2017-12-16 10:21] LABS: Basophils % (A) 0 %; Eosinophils # (A) 0.3 k/uL (0-0.7); Eosinophils % (A) 6 %; HCT 42.4 % (39.0-53.0); HGB 14.3 gm/dL (13.0-17.5); Lymphocytes # (A) 2.1 k/uL (1.0-4.8); Lymphocytes % (A) 38 %; MCH 30.4 pg (25.0-35.0); MCHC 33.7 g/dL (31.0-37.0); MCV 90.3 fL (80.0-100.0); Mean Platelet Volume 7.8; Monocytes # (A) 0.6 k/uL (0-1.0); Monocytes % (A) 10 %; Neutrophils # (A) 2.5 k/uL (1.3-7.7); Neutrophils % (A) 44 %; Platelet Count 204 k/uL (150-450); RBC 4.69 m/uL (4.30-5.90); RDW 13.4 % (11.5-15.5); WBC 5.7 k/uL (3.8-10.6)
[2017-12-16 10:48] LABS: ALT 176 U/L (21-72); AST 71 U/L (17-59); Albumin 4.2 g/dL (3.5-5.0); Alkaline Phosphatase 63 U/L (38-126); Anion Gap 10 mmol/L; Blood Urea Nitrogen 11 mg/dL (9-20); Calcium 9.5 mg/dL (8.4-10.2); Carbon Dioxide 26 mmol/L (22-30); Chloride 107 mmol/L (98-107); Cholesterol 121 mg/dL (<200); Glucose 97 mg/dL (74-99); HDL Cholesterol 52 mg/dL (40-60); LDL Cholesterol,Calculated 59 mg/dL (0-99); Potassium 4.8 mmol/L (3.5-5.1); Sodium 143 mmol/L (137-145); Total Bilirubin 0.5 mg/dL (0.2-1.3); Total Protein 6.8 g/dL (6.3-8.2); Triglycerides 50 mg/dL (<150)
[2017-12-16 11:49] LABS: T4, Free (Free Thyroxine) 1.06 ng/dL (0.78-2.19)
[2017-12-16 17:09] LABS: Vitamin D 25 Hydroxy 20.4 ng/mL (30.0-100.0)
[2017-12-16 18:24] LABS: HIV AB P24 Non-Reactive (Non-Reactive); HIV P24 AG Non-Reactive (Non-Reactive)
== END | disposition home or self-care (01) ==
LOC: LABWHC1 09:32
PROVIDERS: ATTEND Family Medicine
DX: B18.2 Chronic viral hepatitis C (principal); G89.29 Other chronic pain; M54.5 Low back pain; J30.2 Other seasonal allergic rhinitis; F41.8 Other specified anxiety disorders; Z13.220 Encounter for screening for lipoid disorders; Z87.898 Personal history of other specified conditions
CPT/HCPCS: 36415; 80053; 80061; 82306; 84439; 84443; 85025; 87340; 87390; 87522

== ENCOUNTER → 2018-08-28 | Outpatient (CLI) | payer OTHER ==
[2018-08-28 13:57] LABS: Basophils % (A) 1 %; Eosinophils # (A) 0.4 k/uL (0-0.7); Eosinophils % (A) 5 %; HGB 16.1 gm/dL (13.0-17.5); Lymphocytes # (A) 2.4 k/uL (1.0-4.8); Lymphocytes % (A) 31 %; MCH 29.9 pg (25.0-35.0); MCHC 32.3 g/dL (31.0-37.0); MCV 92.5 fL (80.0-100.0); Mean Platelet Volume 7.7; Monocytes # (A) 0.8 k/uL (0-1.0); Monocytes % (A) 10 %; Neutrophils # (A) 3.9 k/uL (1.3-7.7); Neutrophils % (A) 51 %; Platelet Count 228 k/uL (150-450); RDW 13.5 % (11.5-15.5); WBC 7.8 k/uL (3.8-10.6)
[2018-08-28 14:06] LABS: Prothrombin Time 10.5 sec (9.0-12.0)
[2018-08-28 18:04] LABS: Albumin 4.7 g/dL (3.80-4.90); Albumin/Globulin Ratio 1.68 (1.20-2.10); Bilirubin, Conjugated 0.2 mg/dL (0.20-0.40); Bilirubin,Unconjugated 0.4 mg/dL; Globulin 2.8 g/dL (1.6-3.3); Total Bilirubin 0.6 mg/dL (0.3-1.2); Total Protein 7.5 g/dL (6.2-8.2)
== END ==
LOC: LABWHC1 12:36
PROVIDERS: ATTEND Physician Assistant
DX: B18.2 Chronic viral hepatitis C (principal)
CPT/HCPCS: 36415; 80076; 85025; 85610; 87522

== ENCOUNTER → 2019-05-21 | Outpatient (CLI) | payer OTHER ==
[2019-05-21 17:49] LABS: Basophils # (A) 0.1 k/uL (0-0.2); Basophils % (A) 1 %; Eosinophils # (A) 0.2 k/uL (0-0.7); Eosinophils % (A) 3 %; HGB 14.7 gm/dL (13.0-17.5); Lymphocytes # (A) 3.3 k/uL (1.0-4.8); Lymphocytes % (A) 38 %; MCH 30.3 pg (25.0-35.0); MCHC 32.6 g/dL (31.0-37.0); MCV 92.9 fL (80.0-100.0); Mean Platelet Volume 7.6; Monocytes # (A) 0.7 k/uL (0-1.0); Monocytes % (A) 8 %; Neutrophils # (A) 4.3 k/uL (1.3-7.7); Neutrophils % (A) 49 %; Platelet Count 225 k/uL (150-450); RBC 4.85 m/uL (4.30-5.90); RDW 12.6 % (11.5-15.5); WBC 8.8 k/uL (3.8-10.6)
[2019-05-22 01:06] LABS: ALT 24 U/L (10-49); AST 26 U/L (14-35); Alkaline Phosphatase 94 U/L (41-126); Bilirubin, Conjugated <0.20 mg/dL (0.20-0.40); Total Bilirubin 0.4 mg/dL (0.2-1.2); Total Protein 6.6 g/dL (6.2-8.2)
[2019-05-22 16:19] LABS: Hepatits C Virus RNA Not detected (Not detected); Hepatits C Virus RNA, Quant <12 IU/mL (<12); LOG HCV IU/mL <1.08 (<1.08)
== END | disposition home or self-care (01) ==
LOC: LABWHC1 17:09
PROVIDERS: ATTEND Physician Assistant
DX: B18.2 Chronic viral hepatitis C (principal)
CPT/HCPCS: 36415; 80076; 85025; 87522

== ENCOUNTER → 2019-08-28 | Outpatient (CLI) | payer OTHER ==
--- NOTE | 2019-08-28 14:42 | XR ---
Cervical spine HISTORY: Neck pain 5 views of the cervical spine Cervical vertebral bodies show preserved height, alignment, and bone mineralization. Disc spaces and prevertebral soft tissues are normal. Mild spondylosis suspected at C6 anteriorly. No significant for aminal encroachment. IMPRESSION: Mild spondylosis as described. Cervical MRI may be of increased sensitivity to assess for degenerative disc disease.
--- NOTE | 2019-08-28 14:43 | XR ---
Lumbosacral spine HISTORY: Low back pain 5 views of lumbosacral spine Lumbar vertebral bodies show preserved height and bone mineralization. Suspect there is spondylolysis at L4 bilaterally. There is anterolisthesis grade 1 at L4-5. Loss of disc height present L5-S1. Spon dylosis is present with some anterior wedging at T11. 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 Degenerative disc disease. Additional finding s above.
== END | disposition home or self-care (01) ==
LOC: RADXRMAIN 11:48
PROVIDERS: ATTEND Family Medicine
DX: M51.37 Other intervertebral disc degeneration, lumbosacral region (principal); M43.16 Spondylolisthesis, lumbar region; M47.816 Spondylosis without myelopathy or radiculopathy, lumbar region; M47.812 Spondylosis without myelopathy or radiculopathy, cervical region; G89.29 Other chronic pain
CPT/HCPCS: 72050; 72110

== ENCOUNTER 2020-04-10 19:12 | Emergency (ER) | payer OTHER ==
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
[2020-04-10 20:19] LABS: Basophils # (A) 0.1 k/uL (0-0.2); Basophils % (A) 1 %; Eosinophils # (A) 0.2 k/uL (0-0.7); Eosinophils % (A) 2 %; HCT 47.1 % (39.0-53.0); HGB 15.6 gm/dL (13.0-17.5); Lymphocytes % (A) 19 %; MCH 30.5 pg (25.0-35.0); MCHC 33.1 g/dL (31.0-37.0); MCV 92.1 fL (80.0-100.0); Mean Platelet Volume 8.2; Monocytes % (A) 7 %; Neutrophils # (A) 11.4 k/uL (1.3-7.7); Neutrophils % (A) 72 %; Platelet Count 240 k/uL (150-450); RBC 5.11 m/uL (4.30-5.90); RDW 12.8 % (11.5-15.5); WBC 15.9 k/uL (3.8-10.6)
[2020-04-10 20:22] VITALS: RESP 12
[2020-04-10 20:27] LABS: ALT 45 U/L (4-49); AST 53 U/L (17-59); African American GFR (CKD) >90 (>60 ml/min/1.73 sqM); Albumin 4.7 g/dL (3.5-5.0); Alcohol <10 mg/dL; Alkaline Phosphatase 87 U/L (38-126); Anion Gap 8 mmol/L; Blood Urea Nitrogen 16 mg/dL (9-20); Calcium 9.9 mg/dL (8.4-10.2); Carbon Dioxide 26 mmol/L (22-30); Chloride 106 mmol/L (98-107); Glucose 105 mg/dL (74-99); Non-African American GFR(CKD) >90 (>60 ml/min/1.73 sqM); Potassium 4.3 mmol/L (3.5-5.1); Sodium 140 mmol/L (137-145); Total Bilirubin 0.4 mg/dL (0.2-1.3); Total Protein 7.5 g/dL (6.3-8.2)
[2020-04-10 20:37] LABS: Appearance,Urine Clear (Clear); Bilirubin,Urine Negative (Negative); Blood,Urine Negative (Negative); Color,Urine Yellow; Glucose,Urine (UA) Negative (Negative); Hyaline Casts,Urine 1 /lpf (0-2); Ketones,Urine Negative (Negative); Leukocyte Esterase,Urine Negative (Negative); Mucus,Urine Few /hpf; Nitrite,Urine Negative (Negative); Protein,Urine 1+ (Negative); RBC,Urine 1 /hpf (0-5); Specific Gravity,Urine 1.033 (1.001-1.035); Squamous Epithelial Cell,Urine <1 /hpf (0-4); Urobilinogen,Urine <2.0 mg/dL (<2.0); WBC,Urine 2 /hpf (0-5)
--- NOTE | 2020-04-10 20:52 | CT ---
EXAMINATION TYPE: CT brain cspine wo con DATE OF EXAM: 04/10/2020 COMPARISON: None HISTORY: Trauma. fall from 15 ft ladder. Pt c/o rt side rib pain. CT DLP: 3354.9 mGycm Automated exposure control for dose reduction was used. The ventricles and sulci appear normal. There is no mass effect nor midline shift. There is no sign o f intracranial hemorrhage. The calvarium is intact. There is mild ethmoid sinus mucosal thickening. Cervical vertebra have normal alignment. Posterior elements are intact. Facet joints are intact. Disc spaces are fairly normal. I see no cervical spine fracture. IMPRESSION: Negative CT scan cervical spine. Negative CT scan of the brain.
--- NOTE | 2020-04-10 20:57 | XR ---
EXAMINATION TYPE: XR chest 1V portable DATE OF EXAM: 04/10/2020 COMPARISON: NONE HISTORY: Fall. Pain. TECHNIQUE: Single view FINDINGS: Heart and mediastinum are normal. Lungs are clear. Diaphragm is normal. There are chest amry ds. There is no pleural effusion or pneumothorax. IMPRESSION: Normal chest.
--- NOTE | 2020-04-10 20:58 | XR ---
EXAMINATION TYPE: XR pelvis AP view DATE OF EXAM: 04/10/2020 COMPARISON: NONE HISTORY: Fall. Pain. TECHNIQUE: Single view FINDINGS: Pelvic ring is intact. There is contrast in the urinary bladder. Bladder distends smoothly. Proximal femurs and hip joints are intact. IMPRESSION: Normal pelvis. No fracture seen.
[2020-04-10 20:59] LABS: Amphetamine Screen,Urine Not Detected (NotDetected); Barbiturate Screen,Urine Not Detected (NotDetected); Benzodiazepines Screen,Urine Not Detected (NotDetected); Cocaine Screen,Urine Not Detected (NotDetected); Methadone Screen, Urine Not Detected (NotDetected); Opiate Screen,Urine Not Detected (NotDetected); Oxycodone Screen, Urine Not Detected (NotDetected); Phencyclidine Screen,Urine Not Detected (NotDetected); Tricyclic Antidepressant,Urine Not Detected (NotDetected); Urn Cannabinoid Scrn Not Detected (NotDetected)
[2020-04-10] MEDS ORDERED: HYDROmorphone 1 MG/ML 1 ML SYRINGE IVP STA (21:04)
--- NOTE | 2020-04-10 21:08 | CT ---
EXAMINATION TYPE: CT ChestAbdPelvis w con DATE OF EXAM: 04/10/2020 COMPARISON: None HISTORY: Trauma. fall from 15 ft ladder. Pt c/o rt side rib pain. CT DLP: 3354.9 mGycm Automated exposure control for dose reduction was used. CONTRAST: Performed with IV Contrast, patient injected with 100 mL of Isovue 300. Images were obtained from the thoracic inlet to the floor the pelvis with IV contrast. The lungs are clear of infiltrate. There is no pleural effusion or pneumothorax. Heart size is normal . There are no hilar masses. There is no mediastinal adenopathy. Thoracic aorta is intact. There are clips from cholecystectomy. Liver shows no focal defect. Spleen stomach pancreas appear nor mal. Bile ducts are not dilated. There is no adrenal mass. Kidneys show satisfactory contrast opacification. There is no hydronephrosi s. Ureters are not dilated. There is no retroperitoneal adenopathy. Appendix is medial and posterior appears normal. Bladder distends smoothly. There is no inguinal hernia. There is no free fluid in the pelvis. There i s no mesenteric edema. There is no ascites or free air. There is no bowel obstruction. Thoracic and lumbar vertebra show normal alignment. Disc spaces are fairly normal. There is no compre ssion fracture. The ribs appear intact. Shoulder joints appear intact. Sacroiliac joints appear intac t. Proximal femurs and hip joints are normal. Pelvic ring is intact. IMPRESSION: Negative CT scan chest abdomen pelvis. No sign of traumatic injury.
[2020-04-10 21:10] LABS: Prothrombin Time 9.9 sec (9.0-12.0)
[2020-04-10] MEDS ORDERED: KETOROLAC 15 MG/ML 1 ML VIAL IVP STA (21:10)
[2020-04-10 21:12] VITALS: BP 121/88; PULSE 74; TEMP 97.9
== END 2020-04-10 21:32 | disposition home or self-care (01) ==
LOC: EC 19:12
DX: S05.11XA Contusion of eyeball and orbital tissues, right eye, initial encounter (principal); S20.311A Abrasion of right front wall of thorax, initial encounter; S50.812A Abrasion of left forearm, initial encounter; S50.811A Abrasion of right forearm, initial encounter; S30.811A Abrasion of abdominal wall, initial encounter; D72.829 Elevated white blood cell count, unspecified; W11.XXXA Fall on and from ladder, initial encounter
CPT/HCPCS: 36415; 93005; 86900; 86901; 80053; 84484; 85025; 85610; 85730; 86850; 81001; 80306; 72170; 71045; 72125; 70450; 71260; 74177; 99285; 96374; G0480; J1885; Q9967; 80320

== ENCOUNTER → 2020-05-18 | Outpatient (CLI) | payer OTHER ==
--- NOTE | 2020-05-18 18:43 | CT ---
EXAMINATION TYPE: CT chest wo con DATE OF EXAM: 05/18/2020 COMPARISON: CT chest 04/10/2020 HISTORY: right sided chest pain following injury CT DLP: 443.1 mGycm Automated exposure control for dose reduction was used. CONTRAST: CT scan of the chest is performed without intravenous contrast FINDINGS: LUNGS: Minimal dependent atelectasis. Lungs are grossly clear. No concerning parenchymal mass or nodu le identified. No pleural effusion. No pneumothorax. The tracheobronchial tree is patent. MEDIASTINUM/SOFT TISSUES: No axillary, hilar, or mediastinal lymphadenopathy greater than 1 cm. Cardi ac size is normal. No pericardial effusion. No thoracic aortic aneurysm. UPPER ABDOMEN: No adrenal nodule. OSSEOUS: There are healing nondisplaced rib fractures of right ribs 5, 6, 7, 8, and 9 laterally. Ribs 10 and 11 are incompletely visualized, with nonvisualization of rib 12. IMPRESSION: Healing nondisplaced right rib fractures of ribs 5, 6, 7, 8, and 9. Ribs 10 through 12 are incomplete ly visualized and not fully assessed. No pneumothorax.
== END | disposition home or self-care (01) ==
LOC: RADCTMAIN 14:37
PROVIDERS: ATTEND Family Medicine
DX: S22.41XD Multiple fractures of ribs, right side, subsequent encounter for fracture with routine healing (principal); Z91.81 History of falling
CPT/HCPCS: 71250

== ENCOUNTER → 2020-09-08 | Outpatient (CLI) | payer OTHER ==
--- NOTE | 2020-09-08 20:26 | CT ---
EXAMINATION TYPE: CT chest wo con DATE OF EXAM: 09/08/2020 COMPARISON: 05/18/2020. HISTORY: Closed fracture of multiple ribs. CT DLP: 417.9 mGycm. Automated Exposure Control for Dose Reduction was Utilized. TECHNIQUE: CT scan of the thorax is performed without IV contrast. FINDINGS: LUNGS: The lungs are grossly clear, there is no concerning parenchymal mass or nodule identified. T here is no pleural effusion or pneumothorax seen. The tracheobronchial tree is patent. MEDIASTINUM: Lack of IV contrast is noted to limit evaluation for mediastinal and especially hilar ad enopathy. There are no definitive greater than 1 cm hilar or mediastinal lymph nodes. No cardiomega ly or pericardial effusion is seen. OTHER: Chronic/healing fractures of the right fifth through ninth ribs are seen. Cholecystectomy is n oted. IMPRESSION: No acute cardiopulmonary abnormality. Chronic/healing right fifth through ninth rib fractures.
== END | disposition home or self-care (01) ==
LOC: RADCTMAIN 17:13
PROVIDERS: ATTEND Family Medicine
DX: S22.41XS Multiple fractures of ribs, right side, sequela (principal)
CPT/HCPCS: 71250

== ENCOUNTER → 2021-12-03 | Outpatient (CLI) | payer OTHER ==
--- NOTE | 2021-12-04 11:29 | CT ---
EXAMINATION TYPE: CT sinus wo con DATE OF EXAM: 12/03/2021 COMPARISON: None HISTORY: Nasal congestion CT DLP: 575 mGycm. Automated Exposure Control for Dose Reduction was Utilized. TECHNIQUE: CT scan of the sinuses is performed without contrast, axial images are obtained, coronal r eformatted images are also reviewed. FINDINGS: There is mild mucosal thickening involving the bilateral maxillary antrum, ethmoidal and sp henoidal sinuses. Hypoaeration of the frontal sinus.. The ostiomeatal complex is occluded bilaterall y due to localized mucosal thickening. No air-fluid levels. Slight nasal septal deviation to the righ t.. Visualized portion of mastoid air cells show no abnormal opacification. The globes are intact bilate rally. IMPRESSION: 1. Mild chronic sinusitis with occlusion of the ostiomeatal complex bilaterally.
== END | disposition home or self-care (01) ==
LOC: RADCTMAIN 17:37
PROVIDERS: ATTEND Family Medicine
DX: J32.9 Chronic sinusitis, unspecified (principal); J34.89 Other specified disorders of nose and nasal sinuses
CPT/HCPCS: 70486

== ENCOUNTER → 2022-11-02 | Outpatient (CLI) | payer OTHER ==
--- NOTE | 2022-11-02 13:37 | XR ---
EXAMINATION TYPE: XR ribs RT w pa chest xray DATE OF EXAM: 11/02/2022 CLINICAL HISTORY: Chest and right-sided rib pain for 2 weeks. History of fall injury. TECHNIQUE: Single frontal view of the chest is obtained. A frontal and oblique images of the right-si ded ribs. COMPARISON: CT chest September 08, 2020 FINDINGS: There is no suspicious focal air space opacity, pleural effusion, or pneumothorax seen. T he cardiac silhouette size is within normal limits. The osseous structures are intact. Images of the right-sided ribs show no acute displaced fracture. Overlying soft tissue is unremarkabl e. Cholecystectomy clips are noted. IMPRESSION: 1. No acute process. 2. No acute displaced right-sided rib fractures.
--- NOTE | 2022-11-02 13:40 | XR ---
EXAMINATION TYPE: XR thoracic spine 2V DATE OF EXAM: 11/02/2022 CLINICAL HISTORY: Mid back pain. Recent trauma injury. TECHNIQUE: Frontal, lateral, and swimmer's view of thoracic spine are obtained. COMPARISON: CT chest of 04/19/2021. FINDINGS: Thoracic spine show persistent scoliosis without evidence of acute fracture or dislocation. Vertebral body heights and disc space heights are preserved. Mild to moderate multilevel anterior a nd lateral spurring is redemonstrated in the mid to lower thoracic spine. Visualized ribs are intact bilaterally. IMPRESSION: No acute fracture or dislocation is seen in the thoracic spine.
== END | disposition home or self-care (01) ==
LOC: RADXRMAIN 12:50
PROVIDERS: ATTEND Family Medicine
DX: M54.6 Pain in thoracic spine (principal); R07.82 Intercostal pain
CPT/HCPCS: 72070